=== PATIENT | female | born 1995 | race Caucasian/White ===

== ENCOUNTER 2018-08-04 04:40 | Emergency (ER) | payer OTHER | END 2018-08-04 10:10 | disposition other institution (70) | LOC: ED 04:40 | DX: Z02.89 Encounter for other administrative examinations (principal) ==

== ENCOUNTER 2018-08-04 04:40 | Emergency (ER) | payer SELFPAY ==
[~2018-08-04] VITALS: Ht 157.5 cm; Wt 60.8 kg
[2018-08-04 04:42] VITALS: Ht 157.5 cm; Wt 60.8 kg
[2018-08-04 09:09] LABS: CALCIUM 9.1 mg/dL (8.5-10.1); CARBON DIOXIDE 24.9 mmol/L (21-32); CHLORIDE SERUM 103 mmol/L (98-107); CREATININE SERUM 0.5 mg/dL (0.6-1.0); GFR1 > 60 mL/min; GLUCOSE SERUM 87 mg/dL (74-106); POTASSIUM SERUM 3.7 mmol/L (3.5-5.1); SODIUM SERUM 138 mmol/L (136-145)
[2018-08-04 09:16] LABS: BASOPHIL % 3.4 % (0-2); PLATELET COUNT 455 x10^3mcL (130-400); RED CELL DISTRIBUTION WIDTH 21.3 % (11.5-14.5)
[2018-08-04 09:25] LABS: rbc morphology (normal/abnorm) ABNORMAL (NORMAL)
[2018-08-04 10:10] VITALS: BP 121/73
== END 2018-08-04 10:10 | disposition home or self-care (01) ==
LOC: ED 04:40
PROVIDERS: Emergency Medicine
DX: S13.9XXA Sprain of joints and ligaments of unspecified parts of neck, initial encounter (principal); V43.52XA Car driver injured in collision with other type car in traffic accident, initial encounter; W22.11XA Striking against or struck by driver side automobile airbag, initial encounter; Y93.I9 Activity, other involving external motion; Y92.413 State road as the place of occurrence of the external cause; Y99.8 Other external cause status
CPT/HCPCS: 90715; J7030; Q9967